=== PATIENT | female | born 1950 | race Caucasian/White ===

== ENCOUNTER 2019-06-27 12:26 | Emergency (ER) | payer MEDICARE, OTHER ==
[~2019-06-27] VITALS: Ht 147.3 cm; Wt 65.9 kg
[~2019-06-27 12:26] MED LIST: CEPH-357 PO; ZOF4T PO
[2019-06-27 12:39] VITALS: BP 154/70
[2019-06-27] MEDS: HYDROcodone/acetaminophen 5mg/325mg tablet PO ONE ×2 (13:29→13:31)
[2019-06-27] MEDS ORDERED: ACET-2615 PO (14:24)
[2019-06-27] MEDS ORDERED: acetaminophen 325mg tablet PO ONE (14:25)
== END 2019-06-27 14:41 | disposition home or self-care (01) ==
LOC: ER 12:27
DX: G89.29 Other chronic pain (principal); M79.604 Pain in right leg; M79.605 Pain in left leg; E11.9 Type 2 diabetes mellitus without complications; Z86.718 Personal history of other venous thrombosis and embolism; Z79.2 Long term (current) use of antibiotics; Z79.899 Other long term (current) drug therapy
CPT/HCPCS: 99284